=== PATIENT | male | born 1975 | race American Indian/Alaskan Native ===

== ENCOUNTER 2018-07-25 19:36 | Emergency (ER) | payer MEDICAID ==
[2018-07-25 19:41] VITALS: TEMP 99.4
[2018-07-25 21:31] VITALS: BP 147/98; PULSE 72; RESP 20; O2SAT 99
--- NOTE | 2018-07-25 21:33 | ED PDOC ---
HPI: Psych/Substance Abuse Time Seen by Provider: 07/25/18 19:54 Chief Complaint (Nursing): Psychiatric Evaluation Chief Complaint (Provider): Psychiatric Evaluation History Per: Patient History/Exam Limitations: no limitations Onset/Duration Of Symptoms: Days Current Symptoms Are (Timing): Still Present Additional Complaint(s): Patient is a 42 y/o male with a PMHx of HTN and substance abuse who was brought into the ED by ambulance for psychiatric evaluation. 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 The patient is currently in an outpatient residential rehab program. Patient has been struggling with depression and anxiety for the past year. Patient was on his way to the laundry room with a sheet in his arm when he mentioned he was feeling down. The ambulance was called due to concern that the patient might harm himself. Patient denies chest pain, shortness of breath, suicidal or homicidal ideation, auditory/visual changes or hallucinations, headaches, as well as gait or speech disturbance. PCP: Dr. Zari Ojeda Past Medical History Reviewed: Historical Data, Nursing Documentation, Vital Signs Vital Signs: Last Vital Signs Temp 99.4 F 07/25/18 19:38 Pulse 72 07/25/18 21:30 Resp 20 07/25/18 21:30 BP 147/98 H 07/25/18 21:30 Pulse Ox 99 07/25/18 21:30 - Medical History PMH: HTN - Surgical History Surgical History: No Surg Hx - Family History Family History: States: No Known Family Hx - Social History Drugs: Cocaine, Other (heroine) - Immunization History Hx Tetanus Toxoid Vaccination: No Hx Influenza Vaccination: No Hx Pneumococcal Vaccination: No - Allergies Allergies/Adverse Reactions: Allergies Allergy/AdvReac Type Severity Reaction Status Date / Time No Known Allergies Allergy Verified 07/25/18 19:40 Review of Systems ROS Statement: Except As Marked, All Systems Reviewed And Found Negative Eyes: Negative for: Vision Change (or auditory changes) Cardiovascular: Negative for: Chest Pain Respiratory: Negative for: Shortness of Breath Neurological: Negative for: Headache, Other (visual or auditory hallucinations) Psych: Positive for: Anxiety, Depression. Negative for: Suicidal ideation (or homicidal ideation) Physical Exam - Reviewed Nursing Documentation Reviewed: Yes Vital Signs Reviewed: Yes - Physical Exam Appears: Positive for: Well Cardiovascular/Chest: Positive for: Regular Rate, Rhythm. Negative for: Murmur Respiratory: Positive for: Normal Breath Sounds. Negative for: Respiratory Distress Neurological/Psych: Positive for: Mood/Affect (appropriate), Other (taps feet bilaterally; can perform alternating finger to nose test; speech is coherent; cranial nerves: smile is symmetric, no tongue deviaton, able to puff cheeks bilaterally). Negative for: Gait (or speech disturbance) - ECG O2 Sat by Pulse Oximetry: 99 (RA) Pulse Ox Interpretation: Normal Medical Decision Making Medical Decision Making: Time: 2044 Impression: Crisis Evaluation Plan: - Ibuprofen 600 mg PO - Evaluated by foundry worker. - Patient stable for discharge as per Dr. Jones. Diagnosed with adjustment disorder with depressed mood, and anxiety. Scribe Attestation: Documented by Ravi Pena, acting as a scribe for SHASHANK Perez Provider Scribe Attestation: All medical record entries made by the Scribe were at my direction and personally dictated by me. I have reviewed the chart and agree that the record accurately reflects my personal performance of the history, physical exam, medical decision making, and the department course for this patient. I have also personally directed, reviewed, and agree with the discharge instructions and disposition. Disposition - Clinical Impression Clinical Impression: Adjustment disorder with depressed mood, Anxiety Counseled Patient/Family Regarding: Studies Performed, Diagnosis, Need For Followup - Disposition Referrals: Shayne Aguilar MD [Staff Provider] - Disposition: Routine/Home Disposition Time: 21:45 Condition: STABLE Additional Instructions: Please utilize the resources provided to you by mental health counselor. Follow up with your primary care doctor to establish care for your high blood pressure. Instructions: Adjustment Disorder Forms: [email or web address] (Kenyan) Print Language: BULGARIAN - POA Present On Arrival: None
== END 2018-07-25 21:54 | disposition home or self-care (01) ==
LOC: H.ER 19:36
DX: F43.21 Adjustment disorder with depressed mood (principal); I10 Essential (primary) hypertension